=== PATIENT | female | born 1985 | race African-American/Black ===

== ENCOUNTER 2018-04-19 05:26 | Emergency (ER) | payer MEDICAID ==
[~2018-04-19] VITALS: Ht 165.1 cm; Wt 69.0 kg
[2018-04-19] MEDS ORDERED: DICYCLOMINE 10 MG/5 ML ORAL SYR PO STA (06:23)
[2018-04-19] MEDS ORDERED: KETOROLAC 30MG/ML VIAL IV STA (06:23)
[2018-04-19] MEDS ORDERED: SODIUM CHLORIDE 0.9% 1,000 ML IV ONE (06:23)
[2018-04-19 07:19] LABS: BASOPHILS % 0.4 % (0.0-2.0); LYMPHOCYTES % 27.5 % (20.0-50.0); MEAN CORPUSCULAR HEMOGLOBIN 30.4 pg (28.0-32.0); MEAN PLATELET VOLUME 8.4 fl (7.4-10.4); MONOCYTES % 6.8 % (2.0-8.0); NEUTROPHILS % 62.3 % (40.0-76.0); PLATELET 245 x1000/uL (130-400); RED BLOOD CELL COUNT 3.94 mill/uL (4.2-5.4)
[2018-04-19 07:25] LABS: CHLORIDE 105 mEq/L (98-107)
[2018-04-19 07:30] LABS: INR 1.1; PROTHROMBIN TIME 11.2 sec (9.4-11.6)
[2018-04-19 07:52] LABS: HCG SCREEN NEGATIVE
[2018-04-19 09:47] LABS: CLARITY URINE CLEAR (CLEAR); COLOR URINE YELLOW (YELLOW); KETONES URINE NEGATIVE (NEGATIVE); LEUKOCYTE ESTERASE URINE NEGATIVE (NEGATIVE); NITRITE URINE NEGATIVE (NEGATIVE); OCCULT BLOOD URINE NEGATIVE (NEGATIVE); PH URINE 5.5 (4.5-8.0); PROTEIN URINE NEGATIVE (NEGATIVE); SPECIFIC GRAVITY URINE 1.016 (1.005-1.030); UROBILINOGEN URINE 0.2 E.U./dL (0.2-1.0)
[2018-04-19] MEDS ORDERED: ONDANSETRON HCL 4MG/2ML VIAL IV STA (10:26)
[2018-04-19] MEDS ORDERED: MORPHINE SULFATE 4 MG/ML CPJ (NOT FOR IM USE) IV STA (10:26)
[2018-04-19 10:55] VITALS: BP 99/33
== END 2018-04-19 12:13 | disposition home or self-care (01) ==
LOC: ER 06:53
DX: K76.0 Fatty (change of) liver, not elsewhere classified (principal); R30.0 Dysuria; R16.0 Hepatomegaly, not elsewhere classified
CPT/HCPCS: 36415; 74018; 76705; 80053; 81003; 83690; 84703; 85025; 85610; 96374; 99285; J1885; J2270; J2405; J7030; Z7610

== ENCOUNTER 2019-12-13 20:03 | Emergency (ER) | payer MEDICAID ==
[~2019-12-13] VITALS: Ht 167.6 cm; Wt 69.0 kg
[2019-12-14 01:08] VITALS: BP 122/67
== END 2019-12-14 01:18 | disposition home or self-care (01) ==
LOC: ER 20:03
DX: R21 Rash and other nonspecific skin eruption (principal)
CPT/HCPCS: 99283

== ENCOUNTER 2019-12-18 00:44 | Emergency (ER) | payer MEDICAID ==
[~2019-12-18] VITALS: Ht 167.6 cm; Wt 68.0 kg
[2019-12-18 06:46] VITALS: BP 119/71
== END 2019-12-18 06:47 | disposition home or self-care (01) ==
LOC: ER 00:44
DX: J30.9 Allergic rhinitis, unspecified (principal); J06.9 Acute upper respiratory infection, unspecified
CPT/HCPCS: 99283

== ENCOUNTER 2021-09-08 19:04 | Emergency (ER) | payer MEDICAID ==
[~2021-09-08] VITALS: Ht 170.2 cm; Wt 75.0 kg
[2021-09-08 19:53] VITALS: BP 127/81
[2021-09-08] MEDS ORDERED: DOXY-326 MT (20:16)
== END 2021-09-08 21:00 | disposition home or self-care (01) ==
LOC: ER 19:04
DX: L03.116 Cellulitis of left lower limb (principal); L03.115 Cellulitis of right lower limb; L73.9 Follicular disorder, unspecified
CPT/HCPCS: 99282

== ENCOUNTER 2023-09-01 18:46 | Emergency (ER) | payer MEDICAID ==
[~2023-09-01] VITALS: Ht 162.6 cm; Wt 65.0 kg
[~2023-09-01 18:46] MED LIST: DOXY-456 MT
[2023-09-01 18:56] VITALS: BP 112/76; PULSE 92; RESP 18; TEMP 98.7; O2SAT 99
[2023-09-01] MEDS ORDERED: KETOROLAC 30MG/ML VIAL IM ONE (21:15)
[2023-09-01] MEDS ORDERED: NAPR-1176 MT (23:01)
== END 2023-09-01 23:23 | disposition home or self-care (01) ==
LOC: ER 18:46
DX: R51.9 Headache, unspecified (principal)
CPT/HCPCS: 99283; 96372; J1885

== ENCOUNTER 2024-03-20 00:50 | Emergency (ER) | payer MEDICAID ==
[~2024-03-20] VITALS: Ht 167.6 cm; Wt 81.8 kg
[~2024-03-20 00:50] MED LIST changes: +NAPR-1176 MT
[2024-03-20 01:26] VITALS: BP 107/69; PULSE 90; RESP 17; TEMP 98.1; O2SAT 100
[2024-03-20] MEDS ORDERED: PSEU120T84 MT (05:23)
[2024-03-20] MEDS ORDERED: AMOX1TAB16 MT (05:23)
[2024-03-20] MEDS: DEXAMETHASONE 2MG TABLET PO ONE (05:30)
== END 2024-03-20 05:54 | disposition home or self-care (01) ==
LOC: ER 00:50
DX: J02.8 Acute pharyngitis due to other specified organisms (principal)
CPT/HCPCS: 99283; J8540

== ENCOUNTER 2024-11-05 23:21 | Emergency (ER) | payer MEDICAID ==
[~2024-11-05] VITALS: Ht 165.1 cm; Wt 68.2 kg
[~2024-11-05 23:21] MED LIST changes: +AMOX1TAB16 MT; -DOXY-456 MT; +DOXY100C74 MT; +PSEU120T84 MT
[2024-11-05 23:48] VITALS: O2SAT 99
[2024-11-06] MEDS ORDERED: GUAIFENESIN/DM 600MG/30MG ER TAB 12HR PO PRN (02:30)
[2024-11-06] MEDS: IBUPROFEN 400MG TABLET PO ONE (02:56)
[2024-11-06] MEDS: GUAIFENESIN/DM 600MG/30MG ER TAB 12HR PO PRN (02:57)
[2024-11-06] MEDS ORDERED: IBUP-2028 MT (03:23)
[2024-11-06] MEDS ORDERED: GUAI-450 MT (03:23)
[2024-11-06 04:57] VITALS: BP 118/76; PULSE 75; RESP 18; TEMP 36.78072; O2SAT 99
== END 2024-11-06 04:59 | disposition home or self-care (01) ==
LOC: ER 23:21
DX: B34.9 Viral infection, unspecified (principal); R09.81 Nasal congestion; R51.9 Headache, unspecified; J45.909 Unspecified asthma, uncomplicated; Z79.1 Long term (current) use of non-steroidal anti-inflammatories (NSAID)
CPT/HCPCS: 81025; 99285